=== PATIENT | male | born 1940 | race Caucasian/White ===

== ENCOUNTER 2016-08-16 21:29 | Inpatient (IN) | payer MEDICARE, OTHER ==
[~2016-08-16] VITALS: Ht 162.6 cm; Wt 77.2 kg
[~2016-08-16 21:29] MED LIST: AMLO5TAB4 PO; ASPI-664 PO; BUS5 PO; CHOL100062 PO; CIPR500T4 PO; CLOP75TA27 PO; CRES10 PO; ESOM40CA PO; FENO134C PO; FINA5TAB4 PO; FLUT16SP17 NASAL; IPRA4AER IH; LACT10SO5 PO; MECL12.5 PO; MELO-109 PO; METF500T4 PO; METO50TA16 PO; METR500T PO; NIAC500T92 PO; NIT4 SL; PARO-37 PO; RANO500T2 PO; TAMS0.4C2 PO
[2016-08-16] MEDS ORDERED: SOD CHLORIDE 0.9% 1,000 ML IV STA (22:38)
[2016-08-16] MEDS ORDERED: FAMOTIDINE 20 MG INJ IV STA (22:38)
[2016-08-16] MEDS ORDERED: HYDROmorphONE 1 MG/ML SYG IV STA (22:38)
[2016-08-16] MEDS ORDERED: ONDANSETRON 4 MG INJ IV STA (22:38)
[2016-08-16 23:07] LABS: BASOPHILS % 0.2 % (0.0-2.0); EOSINOPHILS # 0.1 10^3/ul (0.0-0.5); EOSINOPHILS % 0.9 % (0.0-7.0); HEMOGLOBIN 16.4 g/dl (14.0-18.0); LYMPHOCYTES # 1.6 10^3/ul (0.8-2.9); LYMPHOCYTES % 20.6 % (15.0-51.0); MEAN CORPUSCULAR HEMOGLOBIN 31.9 pg (29.0-33.0); MEAN CORPUSCULAR VOLUME 91.2 fl (82.0-101.0); MEAN PLATELET VOLUME 8.1 fl (7.4-10.4); MONOCYTE # 0.5 10^3/ul (0.3-0.9); NEUTROPHIL # 5.6 10^3/ul (1.6-7.5); NEUTROPHILS % 72.3 % (39.0-77.0); PLATELET COUNT 237 10^3/UL (140-440); RED BLOOD COUNT 5.15 10^6/ul (4.70-6.10); RED CELL DISTRIBUTION WIDTH 13.6 % (11.5-14.5); UNCORRECTED WBC 7.7 10^3/ul (4.8-10.8); WHITE BLOOD COUNT 7.7 10^3/ul (4.8-10.8)
[2016-08-16 23:08] LABS: CONDITION 1
[2016-08-16 23:35] LABS: ALBUMIN 4.4 g/dl (3.3-4.9); POTASSIUM 4.3 mmol/L (3.5-5.1)
[2016-08-16 23:37] LABS: CREATININE 0.99 mg/dl (0.61-1.24)
[2016-08-16 23:38] LABS: ALBUMIN/GLOBULIN RATIO 1.33; BILIRUBIN,INDIRECT 0.6 mg/dl (0-1.1); BILIRUBIN,TOTAL 0.6 mg/dl (0.2-1.3); CALCIUM 9.6 mg/dl (8.4-10.2); TOTAL PROTEIN 7.7 g/dl (6.1-8.1)
--- NOTE | 2016-08-17 00:22 | RADRPT ---
PROCEDURE: XR Acute Abdomen. CLINICAL INDICATION: Abdominal pain. TECHNIQUE: Upright and supine views of the abdomen were obtained. COMPARISON: There are no similar studies submitted for comparison. FINDINGS: The visualized lung bases and cardiac silhouette are unremarkable. Some moderately dilated loops of small bowel are noted throughout the abdomen. There are no definit e densities overlying the kidneys and ureters. There is no evidence of intra-abdominal free air. IMPRESSION: Dilated loops of bowel throughout the abdomen compatible with obstruction or ileus. RPTAT: HIKT .Yaw Alonzo MD, MD Date Time Electronically viewed and signed by .Yaw Alonzo MD, MD on 08/17/2016 00:22 .T/
[2016-08-17] MEDS ORDERED: BARIUM SULF 2% 450 ML BTL (BERRY SMOOTHIE) PO STA (01:19)
--- NOTE | 2016-08-17 01:19 | ERA ---
ER Documentation Chief Complaint Date/Time DATE: 08/17/16 TIME: 01:09 Chief Complaint mid epigastric pain with n was seen at [place] earlier today HPI This 76-year-old male who did progressively develop worsening abdominal pain yesterday and threw last night. The patient is complaining of nausea but no vomiting no fever. He is unable to have a bowel movement is not passing gas. The patient was seen at [facility] today where he underwent an ultrasound that demonstrated some gallstones he was followed up by having an MRCP which showed no choledocholithiasis but possible bowel obstruction. He then subsequently underwent a CT scan abdomen and pelvis demonstrating a possible early small bowel obstruction versus ileus. Nonetheless, he was discharged home because he said he felt better after pain meds and fluids. However, once he got home his pain returned he is here now. The pain is located in the upper half of his abdomen described as constant and dull. No radiation of pain. ROS All systems reviewed and are negative except as per history of present illness. Medications Home Meds Active Scripts Metronidazole* (Flagyl*) 500 Mg Tablet, 500 MG PO Q8 for 14 Days, TAB Prov:[employer] 04/11/15 Ciprofloxacin Hcl* (Ciprofloxacin Hcl*) 500 Mg Tablet, 500 MG PO BID for 14 Days , TAB Prov:[employer] 04/11/15 Reported Medications Cholecalciferol* (Vitamin D3*) 1,000 Unit Tablet, 1000 UNIT PO DAILY, TAB 04/09/15 Rosuvastatin Calcium* (Crestor*) 10 Mg Tablet, 10 MG PO HS, TAB 04/09/15 Fenofibrate, Micronized (Fenofibrate) 134 Mg Capsule, 134 MG PO DAILY, CAP 04/09/15 Ranolazine* (Ranexa*) 500 Mg Tab.sr.12h, 500 MG PO Q12, TAB 04/09/15 Albuterol/Ipratropium* (Combivent Respimat*) 20-100 Mcg/Inh - 4 Gm Aer.w.adap, 1 PUFF IH QID, INH 04/09/15 Esomeprazole Mag Trihydrate (Nexium) 40 Mg Capsule.dr, 40 MG PO DAILY, CAP 04/09/15 Aspirin* (Aspirin* EC) 81 Mg Tablet.dr, 81 MG PO DAILY, TAB 04/09/15 Fluticasone Propionate* (Fluticasone Propionate* Nasal) 50 Mcg/[place] - 16 Gm [place].susp, 2 SPRAYS NASAL DAILY, EA TO EACH NOSTRIL 04/09/15 Buspirone Hcl* (Buspar*) 5 Mg Tab, 5 MG PO QHS, TAB 04/09/15 Niacin (Niacin* ER) 500 Mg Tab.er.24h, 500 MG PO QHS, TAB.SA 04/09/15 Clopidogrel Bisulfate (Clopidogrel) 75 Mg Tablet, 75 MG PO DAILY, TAB 04/09/15 Meloxicam* (Meloxicam*) 7.5 Mg Tablet, 7.5 MG PO DAILY, TAB 04/09/15 Lactulose* (Lactulose*) 10 Gm/15 Ml Solution, 20 GM PO QHS, ML 04/09/15 Tamsulosin Hcl* (Tamsulosin Hcl*) 0.4 Mg Cap.er.24h, 0.4 MG PO HS, CAP 04/09/15 Metformin* (Glucophage*) 500 Mg Tab, 500 MG PO DAILY, TAB 04/09/15 Meclizine Hcl* (Meclizine Hcl*) 12.5 Mg Tablet, 12.5 MG PO TID Y for PAIN, TAB 04/09/15 Metoprolol Succinate* (Toprol XL*) 50 Mg Tab.er.24h, 50 MG PO DAILY, TAB 04/09/15 Finasteride* (Finasteride*) 5 Mg Tablet, 5 MG PO DAILY, TAB 04/09/15 Nitroglycerin* (Nitrostat*) 0.4 Mg Tab.subl, 0.4 MG SL Q5MIN Y for CHEST PAIN, BOTTLE 04/09/15 Paroxetine Hcl* (Paroxetine*) 20 Mg Tablet, 20 MG PO DAILY, TAB 04/09/15 Amlodipine Besylate* (Norvasc*) 5 Mg Tablet, 5 MG PO DAILY, TAB 04/09/15 Allergies Allergies: Coded Allergies: No Known Allergy (Verified Allergy, Mild, 06/04/07) PMhx/Soc History of Surgery: Yes ("heart stents") Anesthesia Reaction: No Hx Neurological Disorder: No Hx Respiratory Disorders: No Hx Cardiac Disorders: Yes (CAD, stenting, HTN) Hx Psychiatric Problems: No Hx Miscellaneous Medical Probl: No Hx Alcohol Use: Yes (occassional) Hx Substance Use: No Hx Tobacco Use: No Smoking Status: Unknown if ever smoked FmHx Family History: No coronary disease Physical Exam Vitals Vital Signs Date Time Temp Pulse Resp B/P Pulse Ox O2 Delivery O2 Flow Rate FiO2 08/17/16 00:30 69 16 128/78 99 Room Air 08/16/16 21:33 97.8 81 18 139/83 100 Physical Exam Const: Well-developed, well-nourished Head: Atraumatic, normocephalic Eyes: Normal Conjunctiva, PERRLA, EOMI, normal sclera, no nystagmus ENT: Normal External Ears, Nose and Mouth, moist mucus membranes. Neck: Full range of motion. No meningismus, no lymphadenopathy. Resp: Clear to auscultation bilaterally, no wheezing, rhonchi, rales Cardio: Regular rate and rhythm, no murmurs, S1 S2 present Abd: Soft, mild to moderate tenderness in the upper half of the abdomen , non distended. Decreased bowel sounds, no guarding or rebound, no pulsitile abdominal masses or bruits Skin: No petechiae or rashes, no ecchymosis , no maculopapular rash Back: No midline or flank tenderness Ext: No cyanosis, or edema, FROM x 4, normal inspection, neurovascularly intact x 4 Neur: Awake and alert, STR 5/5 x 4, sensation intact x 4, no focal findings, cerebellum intact Psych: Normal Mood and Affect Result Diagram: 08/16/16222408/16/162224 Results 24 hrs Laboratory Tests Test 08/16/16 22:25 Alanine Aminotransferase (ALT/SGPT) 35IU/L Albumin 4.4g/dl Albumin/Globulin Ratio 1.33 Alkaline Phosphatase 52IU/L Anion Gap 22 Aspartate Amino Transf (AST/SGOT) 67IU/L Basophils # 0.010^3/ul Basophils % 0.2% Blood Urea Nitrogen 12mg/dl Calcium Level 9.6mg/dl Carbon Dioxide Level 25mmol/L Chloride Level 102mmol/L Creatinine 0.99mg/dl Direct Bilirubin 0.00mg/dl Eosinophils # 0.110^3/ul Eosinophils % 0.9% Globulin 3.30g/dl Glucose Level 121mg/dl Hematocrit 47.0% Hemoglobin 16.4g/dl Indirect Bilirubin 0.6mg/dl Lipase 60U/L Lymphocytes # 1.610^3/ul Lymphocytes % 20.6% Mean Corpuscular Hemoglobin 31.9pg Mean Corpuscular Hemoglobin Concent 35.0g/dl Mean Corpuscular Volume 91.2fl Mean Platelet Volume 8.1fl Monocytes # 0.510^3/ul Monocytes % 6.0% Neutrophils # 5.610^3/ul Neutrophils % 72.3% Nucleated Red Blood Cells # 0.010^3/ul Nucleated Red Blood Cells % 0.0/100WBC Platelet Count 60467^3/UL Potassium Level 4.3mmol/L Red Blood Count 5.1510^6/ul Red Cell Distribution Width 13.6% Sodium Level 145mmol/L Total Bilirubin 0.6mg/dl Total Protein 7.7g/dl White Blood Count 7.710^3/ul Current Medications Medications (Trade) Dose Ordered Sig/Bonnie Route PRN Reason Start Time Stop Time Status Last Admin Dose Admin Sodium Chloride (NS) 1,000 ml @ 1,000 mls/hr Q1H STAT IV 08/16/16 22:38 08/16/16 23:37 DC 08/16/16 22:46 Hydromorphone HCl (Dilaudid) 1 mg ONCE STAT IV 08/16/16 22:38 08/16/16 22:42 DC 08/16/16 22:46 Ondansetron HCl (Zofran Inj) 4 mg ONCE STAT IV 08/16/16 22:38 08/16/16 22:42 DC 08/16/16 22:46 Famotidine (Pepcid Iv) 20 mg ONCE STAT IV 08/16/16 22:38 08/16/16 22:42 DC 08/16/16 22:46 Procedures/MDM Spoke on the phone with the patient's son who is a fish net stringer. We do not feel is necessary to re-CAT scan him again exposing him to more radiation as he had a CAT scan this morning. Family has the results of the dictation with them. These results demonstrate dictation of a partial small bowel obstruction versus ileus. And therefore obtained 3 view abdomen x-rays: PROCEDURE: XR Acute Abdomen. CLINICAL INDICATION: Abdominal pain. TECHNIQUE: Upright and supine views of the abdomen were obtained. COMPARISON: There are no similar studies submitted for comparison. FINDINGS: The visualized lung bases and cardiac silhouette are unremarkable. Some moderately dilated loops of small bowel are noted throughout the abdomen. There are no definite densities overlying the kidneys and ureters. There is no evidence of intra-abdominal free air. IMPRESSION: Dilated loops of bowel throughout the abdomen compatible with obstruction or ileus. RPTAT: HIKT .Yaw Alonzo MD, MD Date Time Electronically viewed and signed by .Yaw Alonzo MD, MD on 08/17/2016 00:22 .T/ CC: RANJAN DAVIS DO Patient has a small bowel obstruction versus ileus. I will not put an NG tube in him because he is not vomiting and has not had a vomiting history. Will treat with bowel rest and IV fluids We will consult general surgery and admit to the panel His pain is completely resolved at this point in his stay. After speaking with Dr. Mayorga he wants me to put an NG tube in the patient and give contrast then he will get a abdominal series in the morning Departure Diagnosis: Primary Impression: Small bowel obstruction Condition: Stable RANJAN DAVIS DO Aug 17, 2016 01:19
[2016-08-17] MEDS ORDERED: SOD CHLORIDE 0.9% 1,000 ML IV SCH ×2 (02:11→02:48)
[2016-08-17] MEDS ORDERED: ONDANSETRON 4 MG INJ IV PRN ×2 (02:30→03:00)
[2016-08-17] MEDS ORDERED: ACETAMINOPHEN 325 MG TAB PO PRN (02:30)
[2016-08-17] MEDS ORDERED: ONDANSETRON 4 MG INJ IV STA (02:42)
[2016-08-17] MEDS ORDERED: HYDROmorphONE 1 MG/ML SYG IV STA (02:42)
--- NOTE | 2016-08-17 02:48 | HP ---
Date/Time of Note Date/Time of Note DATE: 08/17/16 TIME: 02:39 Assessment/Plan VTE Prophylaxis VTE Prophylaxis Intervention: SCD's Assessment/Plan Assessment/Plan 76 yo male with past medical history of essential hypertension, type II DM, BPH , GERD, hyperlipidemia, depression, diverticulitis previously, who presents with abdominal pain of 2 days duration. 1. Abdominal pain 2/2 to SBO vs ileus - will admit the patient to med/surg, consult surgery (Dr. Mayorga) was notified, NPO, IVF, NGT to intermittent suction , bowel rest, pain medications, repeat abd series in am 2. Essential hypertension - hold medications, hydralazine prn for SBP > 160 3. Type II DM - check hga1c, ISS 4. BPH - hold home medications 5. Dyslipidemia - check lipid panel, hold statin 6. Depression - hold SSRI 7. GERD - protonix IV 8. GI ppx - protonix 9. DVT ppx - scds answered all of his questions. as per clinical course. this history and physical took greater then 45 minutes to complete HPI/ROS Admit Date/Time Admit Date/Time 08/17/2016, 2:39 am Hx of Present Illness 76 yo male with past medical history of essential hypertension, type II DM, BPH , GERD, hyperlipidemia, depression, diverticulitis previously, who presents with abdominal pain of 2 days duration. The pain is diffuse, 10/10, pressure/ stabbing in nature, associated with nausea, chills, headache, and dizziness. His last bowel movement was 4 am Wednesday08/16/2016. He initially went to [facility] and told he had a partial obstruction seen on CT abd/pelvis, sent home with after the pain subsided. US and MRCP were negative for cholecystitis and choledocholithiasis. He came here to [facility], because the pain returned. He denies any chest pain, shortness of breath, urinary symptoms, fevers, diarrhea, abdominal surgeries in past, or other constitutional symptoms. ED course: IV pain medications, NGT to intermittent suction, zofran ROS 14 point review of systems completed, please refer to HPI for any positive findings PMH/Family/Social Past Medical History BPH, Diverticulitis Medical History: coronary artery disease, diabetes, GERD, high cholesterol, hypertension Past Surgical History angiogram with angioplasty Family History Significant Family History: hypertension Social History Alcohol Use: none Smoking Status: Former smoker (quit 25 years ago) Drug Use: none Exam/Review of Systems Vital Signs Vitals Vital Signs Date Time Temp Pulse Resp B/P Pulse Ox O2 Delivery O2 Flow Rate FiO2 08/17/16 00:30 69 16 128/78 99 Room Air 08/16/16 21:33 97.8 Exam Exam Gen Dalton: moderate distress 2/2 to abdominal pain, AAOx4 HEENT: NC/AT, PERRLA, EOMI, no pharyngeal erythema, no tonsillar exudates, no lymphadenopathy, no JVD, no carotid bruits NECK: supple, no thyromegaly THORAX: symmetrical, no obvious deformities CV: S1S2, RRR, no M/G/R Lungs: CTAB no W/C/R/R Abd: soft, tenderness diffusely to deep palpation, non-distended, hypoactive bowel sounds all 4 quadrants, no HSM EXT: no edema, no ecchymosis, no clubbing, FROM Neuro: CN II-XII grossly intact, no focal deficits Psych: anxious Skin: C/D/I Labs Result Diagram: 08/16/16222408/16/162224 Medications Medications Current Medications Sodium Chloride (NS) 1,000 ml @ 80 mls/hr [id number] IV ; Start 08/17/16 at 02:11 ; Stop 08/17/16 at 14:40 Procedures Procedures abd xray IMPRESSION: Dilated loops of bowel throughout the abdomen compatible with obstruction or ileus. QUINN SANDOVAL MD Aug 17, 2016 02:48
[2016-08-17] MEDS ORDERED: hydrALAzine 20 MG INJ IV PRN (03:00)
[2016-08-17] MEDS ORDERED: ACETAMINOPHEN 650 MG SUPP PR PRN (03:00)
[2016-08-17] MEDS ORDERED: NACL 0.9% 3 ML SYG IV SCH (03:00)
[2016-08-17] MEDS ORDERED: METOCLOPRAMIDE 10 MG INJ IV PRN (03:00)
--- NOTE | 2016-08-17 03:01 | RADRPT ---
PROCEDURE: XR Chest. CLINICAL INDICATION: Shortness of breath. TECHNIQUE: AP Portable chest. COMPARISON: 06/04/2007 FINDINGS: There is mild to moderate cardiomegaly. The lungs are clear. The osseous structures are unremarkab le. A nasogastric tube tip is in the stomach. IMPRESSION: No acute findings. RPTAT: HIKT .Yaw Alonzo MD, MD Date Time Electronically viewed and signed by .Yaw Alonzo MD, on 08/17/2016 03:01 .T/
[2016-08-17 04:30] VITALS: Ht 162.6 cm; Wt 77.2 kg
[2016-08-17 04:38] VITALS: BP 141/81; RESP 20
[2016-08-17] MEDS: INSULIN ASPART [NOVOLOG] 3 ML PEN SC SCH ×3 (04:48→13:00)
[2016-08-17] MEDS: PANTOPRAZOLE 40 MG INJ IV SCH (05:32)
[2016-08-17 07:30] LABS: CHOL/HDL RATIO 2.5 RATIO; MAGNESIUM 1.7 mg/dl (1.7-2.5)
[2016-08-17 08:01] LABS: THYROID STIMULATING HORMONE 1.89 MIU/L (0.465-4.680)
[2016-08-17 08:23] VITALS: BP 128/74; RESP 16
[2016-08-17] MEDS ORDERED: DEXTROSE 50% 50 ML SYRINGE IV PRN ×2 (09:00)
[2016-08-17] MEDS ORDERED: GLUCOSE GEL 15 GRAM TUBE PO PRN ×2 (09:00)
[2016-08-17] MEDS ORDERED: GLUCAGON 1 MG INJ IM PRN (09:00)
[2016-08-17] MEDS ORDERED: GLUCOSE GEL 15 GRAM TUBE BUCCAL PRN (09:00)
[2016-08-17] MEDS ORDERED: NON-FORMULARY/PATIENT OWN MED (Albuterol/Ipratropium* (Combivent Respimat*) 1 PUFF) IH SCH (09:00)
[2016-08-17] MEDS ORDERED: LACTATED RINGER'S 1,000 ML IV SCH (14:00)
[2016-08-17] MEDS: D5W-0.45 NACL + KCL 10 MEQ 1,000 ML IV SCH (15:45)
[2016-08-17] MEDS ORDERED: PHENOL 1.4% SOLN 180 ML BTL MT PRN ×2 (16:30→20:30)
--- NOTE | 2016-08-17 16:54 | RADRPT ---
PROCEDURE: XR Abdomen. CLINICAL INDICATION: Abdomen pain. TECHNIQUE: Two views. AP supine and AP erect. COMPARISON: 08/16/2016. FINDINGS: There is a nasogastric tube with the tip in the upper stomach. This should be advanced approximatel y 7 cm. There is gas throughout mildly dilated small bowel. Minimal gas is present in the colon. There are no abnormal calcifications overlying the urinary tracts. The osseus structures are unremarkable. IMPRESSION: 1. The nasogastric tube should be advanced approximately 7 cm. 2. Ileus or obstruction, similar to the prior study. RPTAT: QQ .Hema Maddox MD, MD Date Time Electronically viewed and signed by .Hema Maddox MD, on 08/17/2016 16:53 .R/
[2016-08-17] MEDS: morphine 2 MG INJ IV PRN (18:35)
[2016-08-17 18:36] VITALS: BP 147/82; RESP 18
[2016-08-17 18:55] VITALS: PULSE 78
[2016-08-17 20:48] VITALS: PULSE 79
[2016-08-17 20:50] VITALS: BP 130/83; PULSE 78; RESP 20
[2016-08-17] MEDS: ALBUTEROL HFA 8 GM INHALER INH SCH (22:32)
[2016-08-17] MEDS: IPRATROPIUM (HFA) 12.9 GM INHALER INH SCH (22:32)
--- NOTE | 2016-08-17 23:12 | RADRPT ---
PROCEDURE: XR Chest. CLINICAL INDICATION: Shortness of breath. TECHNIQUE: Single frontal view. COMPARISON: 08/17/2016. FINDINGS: The nasogastric tube remains in satisfactory position. The lungs are clear. The heart is enlarged. There is no pleural effusion. There is no pneumothorax. IMPRESSION: 1. Nasogastric tube tip in the stomach. 2. Cardiomegaly. 3. Clear lungs. RPTAT: QQ .Hema Maddox MD, MD Date Time Electronically viewed and signed by .Hema Maddox MD, on 08/17/2016 23:12 .R/
--- NOTE | 2016-08-17 23:27 | RADRPT ---
PROCEDURE: CT Abdomen and Pelvis without contrast. CLINICAL INDICATION: Abdominal and pelvic pain. TECHNIQUE: CT scan of the abdomen and pelvis without contrast was performed. Coronal and sagittal reformatted images were obtained from the axial source images. Images were reviewed on a [employer]on PACS workstation. Total exam DLP is 795.90 mGy-cm. CTDIvol is 13.41 mGy. One or more of the f ollowing dose reduction techniques were used: Automated exposure control, adjustment of the mA and/o r kV according to patient size, use of iterative reconstruction technique. COMPARISON: CT scan of the abdomen and pelvis dated 04/09/2015 which demonstrated probable sigmoid diverticulitis. FINDINGS: There is mild atelectasis at both lung bases. The lung bases are otherwise normal. There is no ple ural effusion or pericardial effusion. The heart size is normal. There is coronary artery calcific ation. A nasogastric tube is present with the tip in the stomach. The liver is normal in size and attenuation. There is no focal hepatic lesion. The gallbladder and bile ducts are normal. The spleen is normal in size. There is no focal splenic lesion. Both adrenals are normal with no enlargement or mass. The pancreas is unremarkable with no mass or evidence of pancreatitis. There is a benign cyst in the mid left kidney medially. There is no solid renal mass or hydronephro sis. There is no renal calculus or ureteral calculus. The abdominal aorta is not dilated. There is calcification in the aorta consistent with atheroscler osis. There is no retroperitoneal lymphadenopathy or mass. There is no pelvic lymphadenopathy or mass. The bladder and distal ureters are normal. The appendix is well seen and appears normal. There is diverticulosis of the colon without evidence of diverticulitis. There are multiple dilated loops of small bowel in the upper abdomen and midabdomen. Air fluid levels are present. Contrast is present in the small bowel from prior injection of contrast into the nasogastric tube. No defini te transition point is visualized. The distal small bowel is also mildly dilated. There is no free air. There is a small amount of free fluid in the abdomen and pelvis. There are degenerative changes of the spine. There is no fracture or lytic lesion. IMPRESSION: 1. Mild atelectasis at the lung bases posteriorly. 2. Coronary artery calcification. 3. Nasogastric tube tip in the stomach. 4. Benign left renal cyst. 5. Atherosclerosis. 6. Small bowel obstruction or ileus with no definite transition point visualized. 7. Small amount of free fluid in the abdomen and pelvis. 8. Degenerative changes of the spine. RPTAT: QQ .Hema Maddox MD, Date Time Electronically viewed and signed by .Hema Maddox MD, MD on 08/17/2016 23:26 .R/
[2016-08-18] VITALS (29 sets, daily range): BP systolic 112–166; BP diastolic 75–92; PULSE 68–88; RESP 16–20
[2016-08-18] MEDS: D5W-0.45 NACL + KCL 10 MEQ 1,000 ML IV SCH ×2 (03:46→15:55)
--- NOTE | 2016-08-18 04:44 | CONS ---
DATE OF ADMISSION: 08/17/2016 DATE OF CONSULTATION: 08/17/2016 HISTORY OF PRESENT ILLNESS: Mr. Olivia is a 76-year-old male who had some acute onset of crampy ab dominal pain beginning Wednesday, presented to [facility] which workup was concerning for possible commo n bile duct stones. This was ruled out by MRCP, but he did have a CT and MR showing a mild ileus. His symptoms improved, and he was discharged home later to come back to [facility] last [facility] with a similar crampy abdominal pain and an abdominal series consistent with ileus, and I was anthony led for consultation. PAST MEDICAL HISTORY: Significant for coronary artery disease. He is status post an angiogram with angioplasty, BPH, diverticulitis, GERD, high cholesterol, hypertension. SOCIAL HISTORY: He drinks occasionally. He quit smoking 25 years ago. MEDICATIONS: He is on 1. Vitamin D3. 2. Crestor. 3. Ranexa. 4. Nexium. 5. Fluticasone. 6. BuSpar. 7. Niacin. 8. Clopidogrel. 9. Meloxicam. 10. Lactulose. 11. . 12. Glucophage. 13. Meclizine. 14. Toprol. 15. Finasteride. 16. Nitrostat. 17. Paroxetine. 18. Norvasc. ALLERGIES: NO KNOWN DRUG ALLERGIES. PHYSICAL EXAMINATION: GENERAL: He is a well-developed, well-nourished male in no apparent distress. VITAL SIGNS: He is afebrile. Vital signs stable. CHEST: Clear to auscultation bilaterally. HEART: Regular rhythm. ABDOMEN: Soft, nondistended with some mild epigastric tenderness. LABORATORY DATA: Yesterday reveal white count of 8, hematocrit of 47, platelets 237. An abdominal x-ray this morning reveals ileus or obstruction with small amount of gas present in the colon. ASSESSMENT AND PLAN: Mr. Olivia is a 77-year-old male with possible ileus versus small bowel obstr uction. 1. I had a long discussion with the patient and the son about the possible etiology of these sympto ms. The patient never had prior episodes, and this all started a week ago after some dental procedu res. The patient denies abdominal surgery. 2. I did give the patient oral contrast last night in an attempt that the contrast would made it to the colon; however, on the abdominal series today, there was really no contrast to be seen. Theref ore, the radiologist recommended a CT of the abdomen and pelvis which will be performed stat tonight . 3. Revaluate tomorrow. Dictated By: MARKY GONZALEZ/ABRIL Conf#: [id number] DID#: [id number]
[2016-08-18] MEDS: PANTOPRAZOLE 40 MG INJ IV SCH (05:12)
[2016-08-18 06:55] LABS: BASOPHILS % 0.4 % (0.0-2.0); EOSINOPHILS # 0.1 10^3/ul (0.0-0.5); EOSINOPHILS % 2.4 % (0.0-7.0); HEMATOCRIT 42.1 % (42.0-52.0); HEMOGLOBIN 14.4 g/dl (14.0-18.0); LYMPHOCYTES # 1.5 10^3/ul (0.8-2.9); LYMPHOCYTES % 29.8 % (15.0-51.0); MEAN CORPUSCULAR HEMOGLOBIN 31.9 pg (29.0-33.0); MEAN CORPUSCULAR HGB CONC 34.3 g/dl (32.0-37.0); MEAN CORPUSCULAR VOLUME 92.9 fl (82.0-101.0); MEAN PLATELET VOLUME 8.1 fl (7.4-10.4); MONOCYTE # 0.7 10^3/ul (0.3-0.9); MONOCYTES % 13.9 % (0.0-11.0); NEUTROPHIL # 2.6 10^3/ul (1.6-7.5); NEUTROPHILS % 53.5 % (39.0-77.0); PLATELET COUNT 207 10^3/UL (140-440); RED BLOOD COUNT 4.53 10^6/ul (4.70-6.10); RED CELL DISTRIBUTION WIDTH 13.4 % (11.5-14.5); UNCORRECTED WBC 4.9 10^3/ul (4.8-10.8); WHITE BLOOD COUNT 4.9 10^3/ul (4.8-10.8)
[2016-08-18 06:58] LABS: PHOSPHORUS 2.6 mg/dl (2.5-4.9); POTASSIUM 3.8 mmol/L (3.5-5.1)
[2016-08-18 06:59] LABS: MAGNESIUM 1.8 mg/dl (1.7-2.5)
[2016-08-18] MEDS ORDERED: CEFAZOLIN 1 GM INJ ONE (07:00)
[2016-08-18 07:01] LABS: CREATININE 1.01 mg/dl (0.61-1.24)
[2016-08-18 07:02] LABS: CALCIUM 8.5 mg/dl (8.4-10.2)
[2016-08-18 07:09] LABS: CONDITION 1
[2016-08-18] MEDS: ALBUTEROL HFA 8 GM INHALER INH SCH ×4 (09:53→20:17)
[2016-08-18] MEDS: IPRATROPIUM (HFA) 12.9 GM INHALER INH SCH ×4 (09:53→20:17)
--- NOTE | 2016-08-18 11:30 | PN ---
Date/Time of Note Date/Time of Note DATE: 08/18/16 TIME: 11:26 Assessment/Plan VTE Prophylaxis VTE Prophylaxis Intervention: SCD's Lines/Catheters IV Catheter Type (from Nrsg): Peripheral IV Assessment/Plan Chief Complaint/Hosp Course Assessment/Plan: 76 yo male with past medical history of essential hypertension , type II DM, BPH, GERD, hyperlipidemia, depression, diverticulitis previously, who presents with abdominal pain with + SBO. 1. Abdominal pain - 2/2 to SBO vs ileus - NG tube in place, seen by surgery team - per consult surgery (Dr. Mayorga), continue NPO, IVF, NGT to intermittent suction - plan for surgery later today, continue pain medications 2. Essential hypertension - stable - continue hydralazine prn for SBP > 160 3. Type II DM? hga1c = 5.4 - monitor for now 4. BPH - holding home medications 5. Dyslipidemia - f/u lipid panel, hold statin 6. Depression - holding SSRI 7. GERD - protonix IV 8. GI ppx - protonix 9. DVT ppx - scds Problems: Subjective 24 Hr Interval Summary Free Text/Dictation Less abd pain, but still present. Awaiting surgery for later today. Exam/Review of Systems Vital Signs Vitals Vital Signs Date Time Temp Pulse Resp B/P Pulse Ox O2 Delivery O2 Flow Rate FiO2 08/18/16 08:35 77 08/18/16 07:49 98.5 20 143/84 98 08/17/16 20:50 Room Air Intake and Output 08/17/16 08/17/16 08/18/16 15:00 23:00 07:00 Intake Total 640 ml Output Total 350 ml 400 ml Balance -350 ml 240 ml Exam Gen Dalton: AAOx4, NAD presently HEENT: NC/AT, PERRLA, EOMI NECK: supple, no thyromegaly THORAX: symmetrical, no obvious deformities CV: S1S2, RRR, no M/G/R Lungs: CTAB no W/C/R/R Abd: soft, less tenderness to deep palpation now, non-distended EXT: no edema, no ecchymosis, no clubbing, FROM Neuro: CN II-XII grossly intact, no focal deficits Psych: less anxious Skin: C/D/I Results Result Diagram: 08/18/16 0600 08/18/16 0600 Results 24 hrs Laboratory Tests Test 08/17/16 11:56 08/18/16 06:00 Bedside Glucose 94 Anion Gap 14 # Basophils # 0.0 Basophils % 0.4 Blood Urea Nitrogen 12 Calcium Level 8.5 Carbon Dioxide Level 26 Chloride Level 106 Creatinine 1.01 Eosinophils # 0.1 Eosinophils % 2.4 Glucose Level 115 Hematocrit 42.1 Hemoglobin 14.4 Lymphocytes # 1.5 Lymphocytes % 29.8 Magnesium Level 1.8 Mean Corpuscular Hemoglobin 31.9 Mean Corpuscular Hemoglobin Concent 34.3 Mean Corpuscular Volume 92.9 Mean Platelet Volume 8.1 Monocytes # 0.7 Monocytes % 13.9 H Neutrophils # 2.6 Neutrophils % 53.5 Nucleated Red Blood Cells # 0.0 Nucleated Red Blood Cells % 0.0 Phosphorus Level 2.6 Platelet Count 207 Potassium Level 3.8 Red Blood Count 4.53 L Red Cell Distribution Width 13.4 Sodium Level 142 White Blood Count 4.9 # Medications Medications Current Medications Ondansetron HCl (Zofran Inj) 4 mg Q6H PRN IV NAUSEA AND/OR VOMITING; Start at 03:00 Metoclopramide HCl (Reglan) 10 mg Q6H PRN IV NAUSEA AND/OR VOMITING; Start at 03:00 Acetaminophen (Tylenol Supp) 650 mg Q6H PRN MD PAIN LEVEL 1-3 OR FEVER; Start 08/17/16 at 03:00 Morphine Sulfate (morphine) 2 mg Q4H PRN IV SEVERE PAIN LEVEL 7-10 Last administered on 08/17/16 18:35; Admin Dose 1 MG; Start 08/17/16 at 03:00 Pantoprazole (Protonix Iv) 40 mg DAILY@06 IV Last administered on 08/18/16 05: 12; Admin Dose 40 MG; Start 08/17/16 at 06:00 Hydralazine HCl (Apresoline) 10 mg Q6H PRN IV sbp > 160; Start 08/17/16 at 03: 00 Albuterol (Ventolin Hfa) 1 puff QID INH Last administered on 08/18/16 09:53; Admin Dose 1 PUFF; Start 08/17/16 at 09:00 Ipratropium [place] 1 puff 1 puff QID INH Last administered on 08/18/16 09:53 ; Admin Dose 1 PUFF; Start 08/17/16 at 09:00 Potassium Chloride/Dextrose/ Sod Cl (D5-1/2ns + KCl 10 Meq) 1,000 ml @ 80 mls/ hr [id number] IV Last administered on 08/18/16 03:46; Admin Dose 80 MLS/HR; Start 08/17/16 at 14:30 Phenol (Chloraseptic Throat [place]) 2 spray PRN PRN MT THROAT/EAR PAIN FROM NGT ; Start 08/17/16 at 16:30 Phenol (Chloraseptic Throat [place]) 2 spray Q2H PRN MT SORE THROAT; Start at 20:30 MARITA LOPEZ Aug 18, 2016 11:30
--- NOTE | 2016-08-18 12:02 | PN ---
DATE: 08/18/[address] scan was repeated on Mr. Olivia last night and he still seems obstructed. I had a long disc ussion with the family as well as his son last night and today. The patient has now been going on 4 days with a partial small-bowel obstruction of unknown etiology. He is a primary small-bowel obstr uction, has never had surgery before. I discussed the need for exploration as he has not resolved. Son was in agreement. I discussed laparoscopic possible open, lysis of adhesions, possible bowel r esection. All benefits, risks, alternatives were discussed in detail. All questions were answered. The patient elects to proceed. Dictated By: MARKY GONZALEZ/ABRIL Conf#: [id number] DID#: [id number]
[2016-08-18] MEDS: morphine 2 MG INJ IV PRN (12:17)
[2016-08-18] MEDS ORDERED: GLYCOPYRROLATE 0.4 MG INJ ONE (17:08)
[2016-08-18] MEDS ORDERED: HYDROmorphONE 2 MG/ML SYG ONE (17:08)
[2016-08-18] MEDS ORDERED: PROPOFOL 20 ML ONE (17:08)
[2016-08-18] MEDS ORDERED: MIDAZOLAM 1 MG/ML 2 ML INJ ONE (17:08)
[2016-08-18] MEDS ORDERED: NEOSTIGMINE 3 MG/3 ML SYRINGE ONE (17:08)
[2016-08-18] MEDS ORDERED: ROCURONIUM 50 MG INJ ONE (17:08)
[2016-08-18] MEDS ORDERED: ONDANSETRON 4 MG INJ ONE (17:08)
[2016-08-18] MEDS ORDERED: METOCLOPRAMIDE 10 MG INJ ONE (17:12)
[2016-08-18] MEDS ORDERED: ROPIVACAINE 0.5 % 30 ML VIAL ONE (17:51)
[2016-08-18] MEDS ORDERED: HYDROCODONE/APAP (5/325) TAB PO PRN (18:00)
[2016-08-18] MEDS ORDERED: IBUPROFEN 600 MG TAB PO PRN (18:00)
[2016-08-18] MEDS ORDERED: LABETALOL HCL 20MG INJ IV PRN (18:00)
[2016-08-18] MEDS ORDERED: MEPERIDINE 25 MG INJ IV PRN (18:00)
[2016-08-18] MEDS ORDERED: METOCLOPRAMIDE 10 MG INJ IV PRN (18:00)
[2016-08-18] MEDS ORDERED: hydrALAzine 20 MG INJ IV PRN (18:00)
[2016-08-18] MEDS ORDERED: HYDROmorphONE (0.2 MG/ML) 10ML SYG IV PRN ×3 (18:00)
[2016-08-18] MEDS ORDERED: ONDANSETRON 4 MG INJ IV PRN ×2 (18:00)
[2016-08-18] MEDS ORDERED: ACETAMINOPHEN 325 MG TAB PO PRN (18:00)
[2016-08-18] MEDS ORDERED: DIPHENHYDRAMINE 50 MG INJ IV PRN (18:00)
[2016-08-18] MEDS ORDERED: METOPROLOL 5 MG INJ ONE (18:08)
--- NOTE | 2016-08-18 19:26 | OPR ---
DATE OF OPERATION: 08/18/2016 PREOPERATIVE DIAGNOSIS: Small-bowel obstruction. POSTOPERATIVE DIAGNOSIS: Small-bowel obstruction. PROCEDURE PERFORMED: Laparoscopic lysis of adhesions and reduction of internal hernia. SURGEON: Marky Mayorga MD AEROSPACE ENGINEER OFFICER ARMAMENT: None. ANESTHESIA: General endotracheal. ANESTHESIOLOGIST: Celina Sevilla MD ESTIMATED BLOOD LOSS: Minimal. COMPLICATIONS: None. SPECIMENS: Two adhesions. FINDINGS: Internal hernia x2 from adhesive bands in the right lower quadrant. INDICATIONS: Mr. Olivia is a 76-year-old male who presented 2 days ago to the outside hospital wit h abdominal cramps and inability to have a bowel movement and pass flatus. He was discharged home a nd he came back to the emergency room at [facility]. persistently dilated small bowel . He never had prior surgery and the fact that he did resolve and had persistent symptoms for 4 day s, I felt that he warranted an exploration. I discussed laparoscopic, possible open lysis of adhesi ons, possible bowel resection with the patient, his son and his family. All benefits, risks, altern atives were discussed in detail. All questions answered. The patient elected to proceed. DESCRIPTION OF PROCEDURE: Patient was brought to the operating room and placed supine on the table. After preoperative antibiotics and SCDs were placed, the patient was intubated, a Hobbs catheter w as inserted and the abdomen was cleaned, prepped, draped in sterile fashion. All incisions were inf iltrated with 1% lidocaine with epinephrine, 0.5% Marcaine prior to incision. The incision was made in the left upper quadrant using a 5 mm laparoscope-containing trocar. The abdomen was entered und er direct vision and insufflated to 15 mmHg of CO2. Under direct vision, a left lower quadrant 5 mm and a 5 mm in the anterior axillary line at the level of the umbilicus was placed. There was obvio us dilated and collapsed small bowel. I identified my cecum and then continued to trace it proximal ly. At this point, I noted there was an obvious adhesive band causing an internal hernia. This was lysed sharply. I continued tracing the bowel and there was another adhesive band which was lysed s harply. At this point, I noted that the loop of the small bowel was very adherent to another loop a nd kind of stuck in abnormal position. I incised the peritoneum as well to free up the small bowel. I then identified my cecum again and ran the small bowel from the terminal ileum to the ligament o f Treitz. There were no more adhesive bands. The bowel was freed at all areas. I ran the bowel x2 . At this point, I visualized the abdomen. There was no evidence of bleeding, no evidence of any e nterotomies made. At this point, I desufflated the abdomen and removed all trocars. Skin incisions were closed with 4-0 Monocryl, Mastisol and Steri-Strips. The patient tolerated procedure well, wa s extubated in the OR and transferred to the recovery room in stable condition. Dictated By: MARKY GONZALEZ/ABRIL Conf#: [id number] DID#: [id number]
[2016-08-18] MEDS: D5-NS + KCL 20 MEQ 1,000 ML IV SCH (20:07)
[2016-08-18 21:17] LABS: ADD UMIC YES; URINE BILIRUBIN (Dip) 1+ (NEGATIVE); URINE BLOOD (Dip) NEGATIVE (NEGATIVE); URINE COLOR YELLOW (YELLOW); URINE GLUCOSE (Dip) NEGATIVE (NEGATIVE); URINE KETONES (Dip) TRACE (NEGATIVE); URINE LEUKOCYTE ESTERASE (Dip) NEGATIVE (NEGATIVE); URINE NITRITE (Dip) NEGATIVE (NEGATIVE); URINE TOTAL PROTEIN (Dip) 2+ (NEGATIVE); URINE UROBILINOGEN (Dip) 0.2 E.U./dL (0.1-1.0)
[2016-08-18 21:25] LABS: ICTOTEST NEGATIVE (NEGATIVE); SQUAMOUS EPITHELIAL CELL,UR RARE; URINE RBCS 0-2 /HPF (0)
[2016-08-19] VITALS (13 sets, daily range): BP systolic 112–140; BP diastolic 66–81; PULSE 73–87; RESP 15–20
[2016-08-19] MEDS ORDERED: PANTOPRAZOLE 40 MG INJ IV SCH (06:00)
[2016-08-19] MEDS: D5-NS + KCL 20 MEQ 1,000 ML IV SCH ×2 (06:30→13:56)
[2016-08-19] MEDS: PANTOPRAZOLE 40 MG INJ IV SCH (06:31)
[2016-08-19] MEDS: ENOXAPARIN 40 MG/0.4 ML SYG SC SCH (06:32)
[2016-08-19] MEDS: ALBUTEROL HFA 8 GM INHALER INH SCH ×4 (08:06→20:26)
[2016-08-19] MEDS: IPRATROPIUM (HFA) 12.9 GM INHALER INH SCH ×4 (08:06→20:27)
[2016-08-19] MEDS: morphine 2 MG INJ IV PRN ×3 (08:07→17:25)
--- NOTE | 2016-08-19 12:22 | PN ---
Date/Time of Note Date/Time of Note DATE: 08/19/16 TIME: 12:19 Assessment/Plan VTE Prophylaxis VTE Prophylaxis Intervention: SCD's Lines/Catheters IV Catheter Type (from Nrsg): Peripheral IV Urinary Cath still in place: Yes Reason Cath still needed: urinary retention Assessment/Plan Chief Complaint/Hosp Course Assessment/Plan: 76 yo male with past medical history of essential hypertension , type II DM, BPH, GERD, hyperlipidemia, depression, diverticulitis previously, who presents with abdominal pain with + SBO. 1. Abdominal pain - 2/2 to SBO vs ileus now s/p Laparoscopic lysis of adhesions and reduction of internal hernia POD # 1 - continue IVF, CLD, f/u surgery rec.s - pain medications, PT 2. Essential hypertension - stable - continue hydralazine prn for SBP > 160 3. Type II DM? hga1c = 5.4 - monitor for now 4. BPH - holding home medications 5. Dyslipidemia - f/u lipid panel, hold statin 6. Depression - holding SSRI 7. GERD - protonix IV 8. GI ppx - protonix 9. DVT ppx - scds Problems: Subjective 24 Hr Interval Summary Free Text/Dictation Pt had surgery w/ lysis of adhesions yesterday, has some abd pain now but relieved with pain meds. Tolerating liquid diet. Has had BM x 2. Exam/Review of Systems Vital Signs Vitals Vital Signs Date Time Temp Pulse Resp B/P Pulse Ox O2 Delivery O2 Flow Rate FiO2 08/19/16 11:55 98.3 73 17 135/76 96 08/18/16 20:04 Nasal Cannula Intake and Output 08/18/16 08/18/16 08/19/16 15:00 23:00 07:00 Intake Total 1000 ml 900 ml Output Total 380 ml 410 ml Balance 620 ml 490 ml Exam Gen Dalton: AAOx4, NAD presently HEENT: NC/AT, PERRLA, EOMI NECK: supple, no thyromegaly THORAX: symmetrical, no obvious deformities CV: S1S2, RRR, no M/G/R Lungs: CTAB no W/C/R/R Abd: slight distension, + tenderness to palpation EXT: no edema, no ecchymosis, no clubbing, FROM Neuro: CN II-XII grossly intact, no focal deficits Psych: less anxious Skin: C/D/I Results Result Diagram: 08/18/16 0600 08/18/16 0600 Results 24 hrs Laboratory Tests Test 08/18/16 18:20 Urine Bilirubin 1+ H Urine Clarity CLEAR Urine Color YELLOW Urine Glucose NEGATIVE Urine Hemoglobin NEGATIVE Urine Ictotest NEGATIVE Urine Ketones TRACE Urine Leukocyte Esterase NEGATIVE Urine Microscopic RBC 0-2 Urine Microscopic WBC 0-2 Urine Nitrite NEGATIVE Urine Specific [place] >=1.030 H Urine Squamous Epithelial Cells RARE Urine Total Protein 2+ H Urine Urobilinogen 0.2 E.U./dL Urine pH 5.0 Medications Medications Current Medications Metoclopramide HCl (Reglan) 10 mg Q6H PRN IV NAUSEA AND/OR VOMITING; Start at 03:00 Acetaminophen (Tylenol Supp) 650 mg Q6H PRN [place] PAIN LEVEL 1-3 OR FEVER; Start 08/17/16 at 03:00 Morphine Sulfate (morphine) 2 mg Q4H PRN IV SEVERE PAIN LEVEL 7-10 Last administered on 08/19/16 08:07; Admin Dose 2 MG; Start 08/17/16 at 03:00 Pantoprazole (Protonix Iv) 40 mg DAILY@06 IV Last administered on 08/19/16 06: 31; Admin Dose 40 MG; Start 08/17/16 at 06:00 Hydralazine HCl (Apresoline) 10 mg Q6H PRN IV sbp > 160; Start 08/17/16 at 03: 00 Albuterol (Ventolin Hfa) 1 puff QID INH Last administered on 08/19/16 08:06; Admin Dose 1 PUFF; Start 08/17/16 at 09:00 Ipratropium [place] (Atrovent Hfa) 1 puff QID INH Last administered on 08:06; Admin Dose 1 PUFF; Start 08/17/16 at 09:00 Phenol (Chloraseptic Throat [place]) 2 spray PRN PRN [place] THROAT/EAR PAIN FROM NGT ; Start 08/17/16 at 16:30 Phenol (Chloraseptic Throat [place]) 2 spray Q2H PRN MT SORE THROAT; Start at 20:30 Morphine Sulfate (morphine) 2 mg Q2H PRN IV PAIN LEVEL 6-10 Last administered on 08/19/16 11:05; Admin Dose 2 MG; Start 08/18/16 at 18:00 Acetaminophen/ Hydrocodone Bitart ([place] (5/325)) 1 tab Q6H PRN PO PAIN LEVEL 6 -10; Start 08/18/16 at 18:00 Acetaminophen (Tylenol Tab) 650 mg Q6H PRN PO PAIN AND OR ELEVATED TEMP; Start 08/18/16 at 18:00 Ibuprofen (Motrin) 600 mg Q6H PRN PO PAIN LEVEL 1-5; Start 08/18/16 at 18:00 Ondansetron HCl 4 mg 4 mg Q6H PRN IV NAUSEA AND/OR VOMITING; Start 08/18/16 at 18:00 Potassium Chloride/Dextrose/ Sod Cl (D5-NS + KCl 20 Meq) 1,000 ml @ 100 mls/hr Q10H IV Last administered on 08/19/16 06:30; Admin Dose 100 MLS/HR; Start 08/18 at 17:56 Enoxaparin Sodium (Lovenox) 40 mg DAILY@07 SC Last administered on 08/19/16 06: 32; Admin Dose 40 MG; Start 08/19/16 at 07:00 MARITA LOPEZ Aug 19, 2016 12:22
--- NOTE | 2016-08-19 21:22 | PN ---
DATE: 08/19/2016 SUBJECTIVE: Mr. Olivia is postop day 1 from a laparoscopic lysis of adhesions. The patient states he feels better but still is having intermittent crampy pain. He has passed flatus today. PHYSICAL EXAMINATION: VITAL SIGNS: He is afebrile. Vital signs stable. ABDOMEN: Mildly distended. LABORATORIES: Today reveal a white count of 5, hematocrit of 42 and platelets of 207. Sodium 142. ASSESSMENT AND PLAN: Mr. Olivia is a 76-year-old male status post laparoscopic lysis of adhesions. 1. Mild ileus. Would start ice chips and await bowel function until advancing diet. 2. Continue IV fluids. 3. Slowly improving. Dictated By: MARKY GONZALEZ/NTS Conf#: [id number] DID#: [id number]
[2016-08-20] VITALS (10 sets, daily range): BP systolic 127–134; BP diastolic 76–89; PULSE 61–76; RESP 17–20
[2016-08-20] MEDS: D5-NS + KCL 20 MEQ 1,000 ML IV SCH ×2 (00:07→11:00)
[2016-08-20] MEDS: PANTOPRAZOLE 40 MG INJ IV SCH (06:14)
[2016-08-20] MEDS: ENOXAPARIN 40 MG/0.4 ML SYG SC SCH (06:24)
[2016-08-20 07:35] LABS: BASOPHILS % 0.5 % (0.0-2.0); EOSINOPHILS # 0.2 10^3/ul (0.0-0.5); HEMATOCRIT 36.9 % (42.0-52.0); HEMOGLOBIN 12.9 g/dl (14.0-18.0); LYMPHOCYTES # 1.5 10^3/ul (0.8-2.9); LYMPHOCYTES % 39.3 % (15.0-51.0); MEAN CORPUSCULAR HEMOGLOBIN 32.3 pg (29.0-33.0); MEAN CORPUSCULAR VOLUME 92.5 fl (82.0-101.0); MEAN PLATELET VOLUME 7.3 fl (7.4-10.4); MONOCYTE # 0.5 10^3/ul (0.3-0.9); MONOCYTES % 12.4 % (0.0-11.0); NEUTROPHIL # 1.6 10^3/ul (1.6-7.5); NEUTROPHILS % 41.8 % (39.0-77.0); PLATELET COUNT 185 10^3/UL (140-440); RED BLOOD COUNT 3.99 10^6/ul (4.70-6.10); RED CELL DISTRIBUTION WIDTH 13.1 % (11.5-14.5); UNCORRECTED WBC 3.7 10^3/ul (4.8-10.8); WHITE BLOOD COUNT 3.7 10^3/ul (4.8-10.8)
[2016-08-20 07:40] LABS: CONDITION 1
[2016-08-20 07:52] LABS: POTASSIUM 3.8 mmol/L (3.5-5.1)
[2016-08-20 07:54] LABS: CREATININE 0.88 mg/dl (0.61-1.24)
[2016-08-20 07:55] LABS: CALCIUM 8.4 mg/dl (8.4-10.2)
[2016-08-20] MEDS: ALBUTEROL HFA 8 GM INHALER INH SCH ×4 (10:06→21:10)
[2016-08-20] MEDS: IPRATROPIUM (HFA) 12.9 GM INHALER INH SCH ×4 (10:07→21:10)
--- NOTE | 2016-08-20 11:42 | PN ---
Date/Time of Note Date/Time of Note DATE: 08/20/16 TIME: 11:36 Assessment/Plan VTE Prophylaxis VTE Prophylaxis Intervention: SCD's Lines/Catheters IV Catheter Type (from Nrsg): Peripheral IV Urinary Cath still in place: Yes Reason Cath still needed: urinary retention Assessment/Plan Chief Complaint/Hosp Course Assessment/Plan: 76 yo male with past medical history of essential hypertension , type II DM, BPH, GERD, hyperlipidemia, depression, diverticulitis previously, who presents with abdominal pain with + SBO. 1. Abdominal pain - 2/2 to SBO vs ileus now s/p Laparoscopic lysis of adhesions and reduction of internal hernia POD # 2 - improving. - continue IVF, advance diet per surgery rec's, f/u surgery rec.s - pain medications, PT 2. Essential hypertension - stable - continue hydralazine prn for SBP > 160 3. Type II DM? hga1c = 5.4 - monitor for now 4. BPH - holding home medications 5. Dyslipidemia - f/u lipid panel, hold statin 6. Depression - holding SSRI 7. GERD - protonix IV 8. GI ppx - protonix 9. DVT ppx - scds Problems: Subjective 24 Hr Interval Summary Free Text/Dictation Pt has less abd pain now, passing gas. Exam/Review of Systems Vital Signs Vitals Vital Signs Date Time Temp Pulse Resp B/P Pulse Ox O2 Delivery O2 Flow Rate FiO2 08/20/16 09:49 69 08/20/16 08:02 98.5 17 127/79 95 08/18/16 20:04 Nasal Cannula Intake and Output 08/19/16 08/19/16 08/20/16 15:00 23:00 07:00 Intake Total 1000 ml 400 ml Output Total 700 ml 650 ml Balance 300 ml -250 ml Exam Gen Dalton: AAOx4, NAD presently HEENT: NC/AT, PERRLA, EOMI NECK: supple, no thyromegaly THORAX: symmetrical, no obvious deformities CV: S1S2, RRR, no M/G/R Lungs: CTAB no W/C/R/R Abd: less distension,less tenderness to palpation EXT: no edema, no ecchymosis, no clubbing, FROM Neuro: CN II-XII grossly intact, no focal deficits Psych: less anxious Skin: C/D/I Results Result Diagram: 08/20/16 0704 08/20/16 0704 Results 24 hrs Laboratory Tests Test 08/20/16 07:04 Anion Gap 15 Basophils # 0.0 Basophils % 0.5 Blood Morphology Comment Blood Urea Nitrogen 8 Calcium Level 8.4 Carbon Dioxide Level 26 Chloride Level 107 Creatinine 0.88 Eosinophils # 0.2 Eosinophils % 6.0 Glucose Level 86 Hematocrit 36.9 L Hemoglobin 12.9 L Lymphocytes # 1.5 Lymphocytes % 39.3 Mean Corpuscular Hemoglobin 32.3 Mean Corpuscular Hemoglobin Concent 35.0 Mean Corpuscular Volume 92.5 Mean Platelet Volume 7.3 L Monocytes # 0.5 Monocytes % 12.4 H Neutrophils # 1.6 Neutrophils % 41.8 Nucleated Red Blood Cells # 0.0 Nucleated Red Blood Cells % 0.0 Platelet Count 185 Potassium Level 3.8 Red Blood Count 3.99 L Red Cell Distribution Width 13.1 Sodium Level 144 White Blood Count 3.7 #L Medications Medications Current Medications Metoclopramide HCl (Reglan) 10 mg Q6H PRN IV NAUSEA AND/OR VOMITING; Start at 03:00 Acetaminophen (Tylenol Supp) 650 mg Q6H PRN [place] PAIN LEVEL 1-3 OR FEVER; Start 08/17/16 at 03:00 Morphine Sulfate (morphine) 2 mg Q4H PRN IV SEVERE PAIN LEVEL 7-10 Last administered on 08/19/16 08:07; Admin Dose 2 MG; Start 08/17/16 at 03:00 Pantoprazole (Protonix Iv) 40 mg DAILY@06 IV Last administered on 08/20/16 06: 14; Admin Dose 40 MG; Start 08/17/16 at 06:00 Hydralazine HCl (Apresoline) 10 mg Q6H PRN IV sbp > 160; Start 08/17/16 at 03: 00 Albuterol (Ventolin Hfa) 1 puff QID INH Last administered on 08/20/16 10:06; Admin Dose 1 PUFF; Start 08/17/16 at 09:00 Ipratropium [place] (Atrovent Hfa) 1 puff QID INH Last administered on 10:07; Admin Dose 1 PUFF; Start 08/17/16 at 09:00 Phenol (Chloraseptic Throat [place]) 2 spray PRN PRN [place] THROAT/EAR PAIN FROM NGT ; Start 08/17/16 at 16:30 Phenol (Chloraseptic Throat [place]) 2 spray Q2H PRN MT SORE THROAT; Start at 20:30 Morphine Sulfate (morphine) 2 mg Q2H PRN IV PAIN LEVEL 6-10 Last administered on 08/19/16 17:25; Admin Dose 2 MG; Start 08/18/16 at 18:00 Acetaminophen/ Hydrocodone Bitart ([place] (5/325)) 1 tab Q6H PRN PO PAIN LEVEL 6 -10 Last administered on 08/19/16 14:49; Admin Dose 1 TAB; Start 08/18/16 at 18: 00 Acetaminophen (Tylenol Tab) 650 mg Q6H PRN PO PAIN AND OR ELEVATED TEMP; Start 08/18/16 at 18:00 Ibuprofen (Motrin) 600 mg Q6H PRN PO PAIN LEVEL 1-5; Start 08/18/16 at 18:00 Ondansetron HCl 4 mg 4 mg Q6H PRN IV NAUSEA AND/OR VOMITING; Start 08/18/16 at 18:00 Potassium Chloride/Dextrose/ Sod Cl (D5-NS + KCl 20 Meq) 1,000 ml @ 50 mls/hr Q20H IV Last administered on 08/20/16 11:00; Admin Dose 50 MLS/HR; Start at 17:56 Enoxaparin Sodium (Lovenox) 40 mg DAILY@07 SC Last administered on 08/20/16 06: 24; Admin Dose 40 MG; Start 08/19/16 at 07:00 MARITA LOPEZ Aug 20, 2016 11:42
--- NOTE | 2016-08-20 20:04 | PN ---
DATE: 08/20/2016 SUBJECTIVE: Mr. Olivia is postop day 2 from a laparoscopic lysis of adhesions. The patient is fee ling better. He had a bowel movement, passing flatus, tolerating clears. PHYSICAL EXAMINATION: VITAL SIGNS: He is afebrile. Vital signs are stable. ABDOMEN: Soft. ASSESSMENT AND PLAN: Mr. Olivia is a 76-year-old male status post laparoscopic lysis of adhesions. 1. Ileus has resolved. 2. Soft diet. 3. Discharge in a.m. Dictated By: MARKY GONZALEZ/ABRIL Conf#: [id number] DID#: [id number]
[2016-08-21] VITALS: PULSE 69
[2016-08-21 00:23] VITALS: BP 133/78; RESP 22
[2016-08-21 04:04] VITALS: PULSE 66
[2016-08-21 04:51] VITALS: BP 127/75; RESP 22
[2016-08-21] MEDS: PANTOPRAZOLE 40 MG INJ IV SCH (06:00)
[2016-08-21 06:13] LABS: POTASSIUM 4.2 mmol/L (3.5-5.1)
[2016-08-21 06:15] LABS: CREATININE 0.91 mg/dl (0.61-1.24)
[2016-08-21] MEDS: ENOXAPARIN 40 MG/0.4 ML SYG SC SCH (06:21)
[2016-08-21 06:29] LABS: BASOPHILS % 0.4 % (0.0-2.0); EOSINOPHILS # 0.2 10^3/ul (0.0-0.5); EOSINOPHILS % 5.8 % (0.0-7.0); HEMATOCRIT 38.2 % (42.0-52.0); HEMOGLOBIN 13.2 g/dl (14.0-18.0); LYMPHOCYTES # 1.7 10^3/ul (0.8-2.9); LYMPHOCYTES % 39.1 % (15.0-51.0); MEAN CORPUSCULAR HEMOGLOBIN 32.1 pg (29.0-33.0); MEAN CORPUSCULAR HGB CONC 34.5 g/dl (32.0-37.0); MEAN CORPUSCULAR VOLUME 92.9 fl (82.0-101.0); MONOCYTE # 0.5 10^3/ul (0.3-0.9); MONOCYTES % 10.8 % (0.0-11.0); NEUTROPHIL # 1.9 10^3/ul (1.6-7.5); NEUTROPHILS % 43.9 % (39.0-77.0); PLATELET COUNT 205 10^3/UL (140-440); RED BLOOD COUNT 4.12 10^6/ul (4.70-6.10); RED CELL DISTRIBUTION WIDTH 12.9 % (11.5-14.5); UNCORRECTED WBC 4.3 10^3/ul (4.8-10.8); WHITE BLOOD COUNT 4.3 10^3/ul (4.8-10.8)
[2016-08-21 07:20] VITALS: BP 127/80; RESP 18
[2016-08-21 07:41] LABS: CONDITION 1
[2016-08-21 08:01] VITALS: PULSE 69
[2016-08-21] MEDS: ALBUTEROL HFA 8 GM INHALER INH SCH (08:37)
[2016-08-21] MEDS: IPRATROPIUM (HFA) 12.9 GM INHALER INH SCH (08:37)
--- NOTE | 2016-08-21 11:27 | PDOCDIS ---
Discharge Instructions CONDITION Patient Condition: Stable HOME CARE INSTRUCTIONS: Special Diet: Soft ACTIVITY: Activity Restrictions: Slowly Increase Activity FOLLOW UP/APPOINTMENTS Appointments Please take your medications as prescribed, and see your doc in clinic in1 week. MARITA LOPEZ Aug 21, 2016 11:27
--- NOTE | 2016-08-21 12:32 | DS ---
DATE OF ADMISSION: 08/17/2016 DATE OF DISCHARGE: 08/21/2016 A 76-year-old male originally admitted on 07/21/2016 being discharged home on 08/21/2016. HOSPITAL COURSE: Patient came in with abdominal pain. He was found with small-bowel obstruction an d he was treated for that. He was seen by general surgery team during this hospital stay and also w orked with physical therapy. The patient was treated conservatively with n.p.o. and NG tube, but th is did not help resolve the symptoms. He had no prior history of any surgeries in the past. So aft er being evaluated by the surgery team, he underwent an operation. Specifically, he underwent a lap aroscopic lysis of adhesions and reduction of an internal hernia. The patient tolerated the procedu re well. Afterwards he was able to ambulate with assistance from physical therapy, tolerate a p.o. diet. His vital signs were stable on day of discharge and patient will be discharged home today in improved condition. He will be sent with: 1. Combivent 200/100 inhaled q.i.d. 2. Norvasc 5 mg daily. 3. Aspirin 81 mg daily. 4. BuSpar 5 mg at bedtime. 5. Vitamin D3 1000 units daily. 6. Plavix 75 mg daily. 7. Nexium 40 mg daily. 8. Fenofibrate 134 mg daily. 9. Finasteride 5 mg daily. 10. Flonase daily. 11. Lactulose 20 grams at bedtime. 12. Meclizine 12.5 mg t.i.d. p.r.n. 13. Meloxicam 7.5 mg daily. 14. Metformin 500 mg daily. 15. Toprol-XL 50 mg daily. 16. Niacin 500 mg at bedtime. 17. Nitroglycerin 0.4 mg sublingual, 18. Paroxetine 20 mg daily. 19. Ranexa 500 mg q.12h. 20. Crestor 10 mg at bedtime. 21. Flomax 0.4 mg at bedtime. He will need to follow up with general surgery clinic in the next 1 to 2 weeks. FINAL DIAGNOSES: 1. Abdominal pain secondary to status post laparoscopic lysis of adhesions and internal hernia redu ction. 2. Essential hypertension. 3. Type 2 diabetes. Of note, hemoglobin A1c is 5.4. 4. Benign prostatic hypertrophy. 5. High cholesterol. 6. Depression. 7. History of gastroesophageal reflux disease. Time spent discharging patient 40 minutes. Dictated By: MARITA VERGARA Conf#: [id number] DID#: [id number]
== END 2016-08-21 11:55 | disposition home or self-care (01) | DRG 328 ==
LOC: E/R 21:29 → PP2 08-17 02:11 → MS4 08-17 17:53 → TEL 08-17 20:45
PROVIDERS: ADMIT Student in an Organized Health Care Education/Training Program; ATTEND Student in an Organized Health Care Education/Training Program
PROC: 0DS64ZZ Reposition Stomach, Percutaneous Endoscopic Approach (ICD-10-PCS; 2016-08-18)
PROC: 0DNG4ZZ Release Left Large Intestine, Percutaneous Endoscopic Approach (ICD-10-PCS; principal; 2016-08-18 16:00)
DX: K56.5 Intestinal adhesions [bands] with obstruction (postinfection) (principal); E11.9 Type 2 diabetes mellitus without complications; I10 Essential (primary) hypertension; N40.0 Benign prostatic hyperplasia without lower urinary tract symptoms; E78.5 Hyperlipidemia, unspecified; K21.9 Gastro-esophageal reflux disease without esophagitis; F32.9 Major depressive disorder, single episode, unspecified; I25.10 Atherosclerotic heart disease of native coronary artery without angina pectoris; K56.0 Paralytic ileus; Z79.02 Long term (current) use of antithrombotics/antiplatelets; Z79.4 Long term (current) use of insulin; Z79.82 Long term (current) use of aspirin; Z87.891 Personal history of nicotine dependence
CPT/HCPCS: 36415; 71010; 74010; 74176; 80048; 80053; 80061; 81001; 81003; 82962; 83036; 83690; 83735; 84100; 84443; 85025; 87081; 88307; 96374; 96375; 96376; 97162; C9113; J0690; J1170; J1650; J1815; J2250; J2270; J2405; J2710; J2765; J2795; J3480; J7030; J7120

== ENCOUNTER 2017-02-14 10:57 | Emergency (ER) | payer MEDICARE, OTHER ==
[~2017-02-14] VITALS: Ht 157.5 cm; Wt 68.0 kg
[~2017-02-14 10:57] MED LIST changes: -CIPR500T4 PO; -METR500T PO
[2017-02-14 10:59] VITALS: Ht 157.5 cm; Wt 68.0 kg
[2017-02-14] MEDS ORDERED: SOD CHLORIDE 0.9% 1,000 ML IV STA (11:19)
[2017-02-14] MEDS ORDERED: morphine 4 MG/ML VIAL IV STA ×2 (11:19→13:14)
[2017-02-14] MEDS ORDERED: ONDANSETRON 4 MG INJ IV STA ×2 (11:19→13:14)
[2017-02-14 11:53] LABS: BASOPHILS % 0.3 % (0.0-2.0); EOSINOPHILS # 0.1 10^3/ul (0.0-0.5); EOSINOPHILS % 1.9 % (0.0-7.0); HEMATOCRIT 41.2 % (42.0-52.0); HEMOGLOBIN 14.4 g/dl (14.0-18.0); LYMPHOCYTES # 2.2 10^3/ul (0.8-2.9); LYMPHOCYTES % 35.4 % (15.0-51.0); MEAN CORPUSCULAR HEMOGLOBIN 31.6 pg (29.0-33.0); MEAN CORPUSCULAR VOLUME 90.5 fl (82.0-101.0); MEAN PLATELET VOLUME 9.9 fl (7.4-10.4); MONOCYTE # 0.5 10^3/ul (0.3-0.9); MONOCYTES % 8.4 % (0.0-11.0); NEUTROPHIL # 3.4 10^3/ul (1.6-7.5); NEUTROPHILS % 53.7 % (39.0-77.0); PLATELET COUNT 226 10^3/UL (140-415); RED BLOOD COUNT 4.55 10^6/ul (4.70-6.10); RED CELL DISTRIBUTION WIDTH 13.2 % (11.5-14.5); WHITE BLOOD COUNT 6.3 10^3/ul (4.8-10.8)
[2017-02-14] MEDS ORDERED: NIT4 SL (12:03)
[2017-02-14] MEDS ORDERED: BUS5 PO (12:04)
[2017-02-14] MEDS ORDERED: CLON0.5T4 PO (12:05)
[2017-02-14] MEDS ORDERED: MECL-77 PO (12:06)
[2017-02-14] MEDS ORDERED: METF500T4 PO (12:07)
[2017-02-14] MEDS ORDERED: AMLO5TAB4 PO (12:07)
[2017-02-14] MEDS ORDERED: METO-429 PO (12:07)
[2017-02-14] MEDS ORDERED: TAMS0.4C2 PO (12:08)
[2017-02-14] MEDS ORDERED: ASPI-664 PO (12:08)
[2017-02-14] MEDS ORDERED: CHOL100062 PO (12:09)
[2017-02-14] MEDS ORDERED: LACT10SO53 PO (12:10)
[2017-02-14] MEDS ORDERED: MELO-109 PO (12:10)
[2017-02-14] MEDS ORDERED: QUET25TA33 PO (12:10)
[2017-02-14 12:11] LABS: ALANINE AMINOTRANSFERASE 29 IU/L (13-69); ALBUMIN 4.5 g/dl (3.3-4.9); ALBUMIN/GLOBULIN RATIO 1.45; ALKALINE PHOSPHATASE 45 IU/L (42-121); AMYLASE 134 U/L (11-123); ANION GAP 21 (8-16); ASPARTATE AMINO TRANSFERASE 27 IU/L (15-46); BILIRUBIN,INDIRECT 0.4 mg/dl (0-1.1); BILIRUBIN,TOTAL 0.4 mg/dl (0.2-1.3); BLOOD UREA NITROGEN 15 mg/dl (7-20); CALCIUM 9.7 mg/dl (8.4-10.2); CARBON DIOXIDE 25 mmol/L (21-31); CHLORIDE 101 mmol/L (97-110); CREATININE 1.13 mg/dl (0.61-1.24); GLUCOSE 107 mg/dl (70-220); POTASSIUM 3.8 mmol/L (3.5-5.1); SODIUM 143 mmol/L (135-144); TOTAL PROTEIN 7.6 g/dl (6.1-8.1)
[2017-02-14] MEDS ORDERED: FINA5TAB4 PO (12:11)
[2017-02-14] MEDS ORDERED: NIAC500T5 PO (12:11)
[2017-02-14] MEDS ORDERED: FENO160T10 PO (12:12)
[2017-02-14] MEDS ORDERED: PARO-37 PO (12:12)
[2017-02-14] MEDS ORDERED: ESOM40CA PO (12:13)
[2017-02-14] MEDS ORDERED: CRES10 PO (12:13)
[2017-02-14] MEDS ORDERED: RANO500T2 PO (12:14)
[2017-02-14] MEDS ORDERED: LINA145C PO (12:14)
[2017-02-14] MEDS ORDERED: IPRA4AER INHALATION (12:14)
[2017-02-14] MEDS ORDERED: METR250T19 PO (12:15)
[2017-02-14 12:17] LABS: INR 1.03; PROTIME 13.5 Sec (12.2-14.2); PT RATIO 1.1
[2017-02-14 12:18] LABS: PARTIAL THROMBOPLASTIN TIME 34.6 Sec (25.0-35.0)
[2017-02-14 12:23] LABS: TROPONIN-I < 0.012 ng/ml (0.00-0.12)
[2017-02-14] MEDS ORDERED: IODIXANOL LOCM 100 ML BTL ONE (12:27)
[2017-02-14] MEDS ORDERED: SOD CHLORIDE 0.9% 100 ML ONE (12:27)
[2017-02-14 12:43] LABS: ADD UMIC YES; UR ASCORBIC ACID NEGATIVE (NEGATIVE); UR BILIRUBIN (Dip) NEGATIVE (NEGATIVE); UR BLOOD (Dip) NEGATIVE (NEGATIVE); UR CLARITY CLEAR (CLEAR); UR COLOR YELLOW (YELLOW); UR GLUCOSE (Dip) NEGATIVE (NEGATIVE); UR KETONES (Dip) NEGATIVE (NEGATIVE); UR LEUKOCYTE ESTERASE (Dip) TRACE Leu/ul (NEGATIVE); UR NITRITE (Dip) NEGATIVE (NEGATIVE); UR RBC 0 /HPF (0-5); UR SPECIFIC GRAVITY (Dip) 1.006 (1.003-1.030); UR TOTAL PROTEIN (Dip) NEGATIVE (NEGATIVE); UR UROBILINOGEN (Dip) NEGATIVE (NEGATIVE)
--- NOTE | 2017-02-14 12:48 | RADRPT ---
PROCEDURE: CT of the abdomen and pelvis CLINICAL INDICATION: Abdominal pain TECHNIQUE: The study was performed utilizing a [employer] 64-slice multidetector CT scanner. Dir ect spiral axial sections were obtained through the abdomen and pelvis with intravenous contrast. Af ter administration of 90 cc of Visipaque 320, postcontrast images were obtained. Coronal and sagitt al reformatted images were performed. The CTDI vol is 12.01 mGy and the DLP is 716 mGy-cm. The imag es were reviewed on a PACS workstation. COMPARISON: 08/17/2016 FINDINGS: CT abdomen: 3 mm nodule in the left lower lobe is seen and has not changed significantly. The melissa ining lung bases are clear. The heart is not enlarged. No pericardial effusion is seen. The liver is normal in size and contour. Calcifications in the right hepatic lobe are once again see n. No focal liver lesions or intrahepatic biliary dilatation is seen. The gallbladder is normal. No common bile duct dilatation is seen. The spleen, pancreas, and adrenal glands are unremarkable in a ppearance. The kidneys are normal in size and contour enhance normally. No evidence of hydronephros is or nephrolithiasis is seen. The left renal cyst is essentially unchanged. The stomach is unremarkable. The large bowel is stool-filled. Sigmoid diverticulosis is seen withou t evidence of diverticulitis. The small and remainder of the large bowel are otherwise unremarkable in course and caliber. No inflammatory changes in the periappendiceal region is seen. No enlarged l ymph nodes or fluid collections are seen. The aorta is normal in caliber. Aortic calcifications are seen. CT pelvis: No pelvic mass, adenopathy, or focal fluid collection is seen. There is no free fluid. The urinary bladder is normal. The pelvic organs are unremarkable. No osseous lesions are seen. De generative spondylosis of the lumbar spine is seen. IMPRESSION: 1. No acute pathology in the abdomen and pelvis. 2. Stool filled large bowel with sigmoid diverticulosis. 3. 3 mm nodule left lower lobe is stable. Recommendations Solid nodules Nodule size: = 4 mm - low risk patients: no follow-up needed - high risk patients: follow-up at 12 months and if no change, no further imaging needed Nodule size: 4-6 mm - low risk patients: follow-up at 12 months and if no change, no further imaging needed - high risk patients: initial follow-up CT at 6-12 months and then at 18-24 months if no change Nodule size: >6-8 mm - low risk patients: initial follow-up CT at 6-12 months and then at 18-24 months if no change - high risk patients: initial follow-up CT at 3-6 months and then at 9-12 and 24 months if no change Nodule size: >8 mm - either low or high risk patients - follow-up CTs at around 3, 9, and 24 months - dynamic contrast enhanced CT, PET, and/or biopsy Note: newly detected indeterminate nodule in persons 35 years of age or older. - low risk patients: minimal or absent history of smoking and or other known risk factors - high risk patients: history of smoking or of other known risk factors (e.g. first degree relative with lung cancer, or exposure to asbestos, radon, uranium) if a nodule up to 8 mm is partly solid or is ground glass further follow up is required after 24 mon ths to exclude possible slow growing adenocarcinoma (WALT) RPTAT: HPNM Physician Kurtis Date Time Electronically viewed and signed by Physician Kurtis on 02/14/2017 12:47 /
[2017-02-14] MEDS ORDERED: CIPR500T4 PO (14:24)
[2017-02-14 14:35] VITALS: BP 126/85; PULSE 57; RESP 16; TEMP 98.5
--- NOTE | 2017-02-14 14:36 | ERD ---
ER Documentation Chief Complaint Date/Time DATE: 02/14/17 TIME: 14:31 Chief Complaint AP HPI This is a 76-year-old Dive[place] speaking male that presents to the emergency department complaining of left-sided lower abdominal pain for the past 3 days. The patient has had a history of a small bowel obstruction due to surgical adhesions and diverticulitis. He indicates that over the past 3 days the pain is a dull achy sensation exacerbated with touch and relieved when lying supine. He has had no fevers or shaking or chills. He denies any hemoptysis hematemesis or melanotic stools. The patient saw his primary care physician yesterday and was prescribed Flagyl. He denies any chest pain or pressure that radiates to the neck arm back or jaw and he has no shortness of breath at rest or exertion. He does suffer from constipation and takes laxatives at home and indicates his last bowel movement was roughly 24 hours ago ROS All systems reviewed and are negative except as per history of present illness. Medications Home Meds Active Scripts Ciprofloxacin Hcl* (Ciprofloxacin Hcl*) 500 Mg Tablet, 500 MG PO BID for 7 Days , TAB Prov:CHERRY SCHULER 02/14/17 Reported Medications Metronidazole* (Metronidazole*) 250 Mg Tablet, 250 MG PO TID, TAB 02/14/17 Linaclotide (LINZESS) 145 Mcg Capsule, 145 MCG PO DAILY, #30 CAP 02/14/17 Albuterol/Ipratropium* (Combivent Respimat*) 20-100 Mcg/Inh - 4 Gm Aer.w.adap, 1 PUFF INHALATION QID, #1 INHALER 02/14/17 Ranolazine* (Ranexa*) 500 Mg Tab.sr.12h, 500 MG PO Q12, TAB 02/14/17 Rosuvastatin Calcium* (Crestor*) 10 Mg Tablet, 10 MG PO DAILY, #30 TAB 02/14/17 Esomeprazole Mag Trihydrate (Nexium) 40 Mg Capsule.dr, 40 MG PO DAILY, #30 CAP 02/14/17 Paroxetine Hcl* (Paroxetine*) 20 Mg Tablet, 20 MG PO HS, TAB 02/14/17 Fenofibrate (Triglide) 160 Mg Tablet, 160 MG PO DAILY, TAB 02/14/17 Niacin (Niacor) 500 Mg Tablet, 500 MG PO BID, TAB 02/14/17 Finasteride* (Finasteride*) 5 Mg Tablet, 5 MG PO DAILY, TAB 02/14/17 Quetiapine Fumarate* (Quetiapine Fumarate*) 25 Mg Tablet, 25 MG PO HS, TAB 02/14/17 Meloxicam* (Meloxicam*) 7.5 Mg Tablet, 7.5 MG PO DAILY, #30 TAB 02/14/17 Lactulose (Constulose) 10 Gm/15 Ml Solution, 30 ML PO QHS 02/14/17 Cholecalciferol* (Vitamin D3*) 1,000 Unit Tablet, 1000 UNIT PO DAILY, TAB 02/14/17 Tamsulosin Hcl* (Tamsulosin Hcl*) 0.4 Mg Cap.er.24h, 0.4 MG PO DAILY, CAP 02/14/17 Aspirin* (Aspirin* EC) 81 Mg Tablet.dr, 81 MG PO DAILY, TAB 02/14/17 Amlodipine Besylate* (Norvasc*) 5 Mg Tablet, 5 MG PO DAILY, TAB 02/14/17 Metformin Hcl* (Metformin Hcl*) 500 Mg Tablet, 500 MG PO WITH BREAKFAST, #30 TAB 02/14/17 Metoprolol Tartrate* (Lopressor*) 50 Mg Tab, 50 MG PO DAILY, #60 TAB 02/14/17 Meclizine Hcl* (Meclizine Hcl*) 25 Mg Tablet, 37.5 MG PO DAILY Y for DIZZINESS, TAB 02/14/17 Clonazepam* (Clonazepam*) 0.5 Mg Tablet, 0.5 MG PO QHS Y for ANXIETY, TAB 02/14/17 Buspirone Hcl* (Buspar*) 5 Mg Tab, 5 MG PO QHS, TAB 02/14/17 Nitroglycerin* (Nitrostat*) 0.4 Mg Tab.subl, 0.4 MG SL Q5MIN Y for CHEST PAIN, BOTTLE 02/14/17 Discontinued Reported Medications Cholecalciferol* (Vitamin D3*) 1,000 Unit Tablet, 1000 UNIT PO DAILY, TAB 04/09/15 Rosuvastatin Calcium* (Crestor*) 10 Mg Tablet, 10 MG PO HS, TAB 04/09/15 Fenofibrate, Micronized (Fenofibrate) 134 Mg Capsule, 134 MG PO DAILY, CAP 04/09/15 Ranolazine* (Ranexa*) 500 Mg Tab.sr.12h, 500 MG PO Q12, TAB 04/09/15 Albuterol/Ipratropium* (Combivent Respimat*) 20-100 Mcg/Inh - 4 Gm Aer.w.adap, 1 PUFF IH QID, INH 04/09/15 Esomeprazole Mag Trihydrate (Nexium) 40 Mg Capsule.dr, 40 MG PO DAILY, CAP 04/09/15 Aspirin* (Aspirin* EC) 81 Mg Tablet.dr, 81 MG PO DAILY, TAB 04/09/15 Fluticasone Propionate* (Fluticasone Propionate* Nasal) 50 Mcg/Pollock - 16 Gm Pollock.susp, 2 SPRAYS NASAL DAILY, EA TO EACH NOSTRIL 04/09/15 Buspirone Hcl* (Buspar*) 5 Mg Tab, 5 MG PO QHS, TAB 04/09/15 Niacin (Niacin* ER) 500 Mg Tab.er.24h, 500 MG PO QHS, TAB.SA 04/09/15 Clopidogrel Bisulfate (Clopidogrel) 75 Mg Tablet, 75 MG PO DAILY, TAB 04/09/15 Meloxicam* (Meloxicam*) 7.5 Mg Tablet, 7.5 MG PO DAILY, TAB 04/09/15 Lactulose* (Lactulose*) 10 Gm/15 Ml Solution, 20 GM PO QHS, ML 04/09/15 Tamsulosin Hcl* (Tamsulosin Hcl*) 0.4 Mg Cap.er.24h, 0.4 MG PO HS, CAP 04/09/15 Metformin* (Glucophage*) 500 Mg Tab, 500 MG PO DAILY, TAB 04/09/15 Meclizine Hcl* (Meclizine Hcl*) 12.5 Mg Tablet, 12.5 MG PO TID Y for PAIN, TAB 04/09/15 Metoprolol Succinate* (Toprol XL*) 50 Mg Tab.er.24h, 50 MG PO DAILY, TAB 04/09/15 Finasteride* (Finasteride*) 5 Mg Tablet, 5 MG PO DAILY, TAB 04/09/15 Nitroglycerin* (Nitrostat*) 0.4 Mg Tab.subl, 0.4 MG SL Q5MIN Y for CHEST PAIN, BOTTLE 04/09/15 Paroxetine Hcl* (Paroxetine*) 20 Mg Tablet, 20 MG PO DAILY, TAB 04/09/15 Amlodipine Besylate* (Norvasc*) 5 Mg Tablet, 5 MG PO DAILY, TAB 04/09/15 Allergies Allergies: Coded Allergies: No Known Allergy (Verified , 02/14/17) PMhx/Soc History of Surgery: Yes (angiogram with angioplasty) Anesthesia Reaction: No Hx Neurological Disorder: No Hx Respiratory Disorders: No Hx Cardiac Disorders: Yes (CAD) Hx Psychiatric Problems: No Hx Miscellaneous Medical Probl: Yes (HTN, CAD, stents, DM, BPH, GERD, depression, diverticulitis) Hx Alcohol Use: No Hx Substance Use: No Hx Tobacco Use: No Smoking Status: Never smoker Physical Exam Vitals Vital Signs Date Time Temp Pulse Resp B/P Pulse Ox O2 Delivery O2 Flow Rate FiO2 02/14/17 13:05 57 16 132/99 100 Room Air 02/14/17 10:59 98.1 65 18 141/69 99 Physical Exam Constitutional:Well-developed. Well-nourished. HEENT:Normocephalic. Atraumatic.Pupils were equal round reactive to light. Moist mucous membranes.No tonsillar exudates. Neck: No nuchal rigidity. No lymphadenopathy. No posterior cervical spine tenderness or step-offs. Respiratory: Not using accessory muscles of respiration.Lungs were clear to auscultation bilaterally. No rhonchi. No rales. No wheezing. Cardiovascular: Regular rate regular rhythm.No murmurs. No rubs were appreciated.S1, S2 normal. Distal pulses are palpable 2+ bilaterally. GI: Abdomen was soft. Tenderness in the left lower quadrant. Non Distended. No pulsatile abdominal masses or bruits. No rebound. No guarding. Bowel sounds were present and normal. Muscle skeletal: Full range of motion of both the upper and lower extremities bilaterally.Normal muscle tone.No assymetrical calf tenderness or swelling. Skin: No petechia, no purpura. No lesions on the palms or the soles of the feet. No maculopapular rash. NEURO: Patient was alert, awake, orientated x3.No facial droop. Gait observed and normal with no ataxia.Speech had regular rate and rhythm. No focal neurological deficits. Result Diagram: 02/14/17 1120 02/14/17 1120 Results 24 hrs Laboratory Tests Test 02/14/17 11:20 02/14/17 12:15 White Blood Count 6.310^3/ul Red Blood Count 4.5510^6/ul Hemoglobin 14.4g/dl Hematocrit 41.2% Mean Corpuscular Volume 90.5fl Mean Corpuscular Hemoglobin 31.6pg Mean Corpuscular Hemoglobin Concent 35.0g/dl Red Cell Distribution Width 13.2% Platelet Count 15078^3/UL Mean Platelet Volume 9.9fl Neutrophils % 53.7% Lymphocytes % 35.4% Monocytes % 8.4% Eosinophils % 1.9% Basophils % 0.3% Nucleated Red Blood Cells % 0.0/100WBC Neutrophils # 3.410^3/ul Lymphocytes # 2.210^3/ul Monocytes # 0.510^3/ul Eosinophils # 0.110^3/ul Basophils # 0.010^3/ul Nucleated Red Blood Cells # 0.010^3/ul Prothrombin Time 13.5Sec Prothrombin Time Ratio 1.1 INR International Normalized Ratio 1.03 Activated Partial Thromboplast Time 34.6Sec Sodium Level 143mmol/L Potassium Level 3.8mmol/L Chloride Level 101mmol/L Carbon Dioxide Level 25mmol/L Anion Gap 21 Blood Urea Nitrogen 15mg/dl Creatinine 1.13mg/dl Glucose Level 107mg/dl Calcium Level 9.7mg/dl Total Bilirubin 0.4mg/dl Direct Bilirubin 0.00mg/dl Indirect Bilirubin 0.4mg/dl Aspartate Amino Transf (AST/SGOT) 27IU/L Alanine Aminotransferase (ALT/SGPT) 29IU/L Alkaline Phosphatase 45IU/L Troponin I < 0.012ng/ml Total Protein 7.6g/dl Albumin 4.5g/dl Globulin 3.10g/dl Albumin/Globulin Ratio 1.45 Amylase Level 134U/L Lipase 155U/L Urine Color YELLOW Urine Clarity CLEAR Urine pH 7.0 Urine Specific [place] 1.006 Urine Ketones NEGATIVEmg/dL Urine Nitrite NEGATIVEmg/dL Urine Bilirubin NEGATIVEmg/dL Urine Urobilinogen NEGATIVEmg/dL Urine Leukocyte Esterase TRACELeu/ul Urine Microscopic RBC 0/HPF Urine Microscopic WBC 0/HPF Urine Hemoglobin NEGATIVEmg/dL Urine Glucose NEGATIVEmg/dL Urine Total Protein NEGATIVEmg/dl Current Medications Medications (Trade) Dose Ordered Sig/Bonnie Route PRN Reason Start Time Stop Time Status Last Admin Dose Admin Sodium Chloride (NS) 1,000 ml @ 1,000 mls/hr Q1H STAT IV 02/14/17 11:19 02/14/17 12:18 DC 02/14/17 11:35 Morphine Sulfate (morphine) 4 mg ONCE STAT IV 02/14/17 11:19 02/14/17 11:24 DC 02/14/17 11:35 Ondansetron HCl (Zofran Inj) 4 mg ONCE STAT IV 02/14/17 11:19 02/14/17 11:24 DC 02/14/17 11:35 IV Flush 10 ml 10 ml STK-MED ONCE .ROUTE 02/14/17 12:27 02/14/17 12:28 DC Sodium Chloride (NS) 100 ml @ ud STK-MED ONCE .ROUTE 02/14/17 12:27 02/14/17 12:28 DC Iodixanol (Visipaque Locm) 100 ml STK-MED ONCE .ROUTE 02/14/17 12:27 02/14/17 12:28 DC Morphine Sulfate (morphine) 4 mg ONCE STAT IV 02/14/17 13:14 02/14/17 13:16 DC 02/14/17 13:18 Ondansetron HCl (Zofran Inj) 4 mg ONCE STAT IV 02/14/17 13:14 02/14/17 13:16 DC 02/14/17 13:18 Procedures/MDM This patient presented to the emergency department with abdominal pain and was seen and evaluated by myself. My differential diagnosis included but was not limited to abdominal aortic aneurysm, appendicitis, pancreatitis, perforated peptic ulcer, perforated viscus, Boerhaaves syndrome or visceral pain such as diverticulitis, DKA, esophagitis, hepatitis or bowel obstruction. The patient was placed on a monitoring specialist, continuous pulse oximetry, and IV access was established by nursing staff. Patient received intravenous morphine and Zofran for analgesic control I obtained a 12-lead EKG tracing to rule out atypical myocardial infarction. 12 Lead EKG tracing ordered and reviewed by myself showed: Sinus bradycardia 57 bpm and no arrhythmia. GA interval normal. QRS duration normal. No ST segment elevation No ST segment depression. No changes consistent with acute ischemia. As obtained a CT scan of the abdomen which indicated the patient had diverticulosis without diverticulitis and no evidence of perforation. The patient did have constipation. There is no signs of a small bowel obstruction. I did speak at length with the patient's son who is a art tracer in [place]. I will provide a prescription of ciprofloxacin to broaden the patient's antibiotic coverage as he is currently on Flagyl. I informed the son and the patient of the nodule that was seen on the left lower lobe however there is been no changes from a previous CT scan. They will follow-up on an outpatient basis. The patient was pain-free at the time of discharge and able to tolerate oral intake. The patient was discharged home in fair condition. They were instructed to return to the emergency department at any time if there was any worsening of their condition. The patient stated they would follow up with their PCP in the next 24-48 hours to initiate a suitable medication regimen under the care of their PCP as well as to allow their PCP to monitor any drug reactions. The patient was discharged home with prescriptions after they gave informed consent to the new medication. They were also fully informed by myself on the adverse effects and adverse drug interactions in order to provide adequate safeguards to prevent possible adverse reactions to medications. Departure Diagnosis: Primary Impression: Diverticulosis of colon without diverticulitis Condition: Fair Patient Instructions: Diverticulosis CHERRY SCHULER Feb 14, 2017 14:36
== END 2017-02-14 14:39 | disposition home or self-care (01) ==
LOC: E/R 10:57
DX: K57.30 Diverticulosis of large intestine without perforation or abscess without bleeding (principal); I10 Essential (primary) hypertension; I25.10 Atherosclerotic heart disease of native coronary artery without angina pectoris; E11.9 Type 2 diabetes mellitus without complications; Z79.01 Long term (current) use of anticoagulants; Z79.84 Long term (current) use of oral hypoglycemic drugs; Z79.82 Long term (current) use of aspirin; Z98.61 Coronary angioplasty status
CPT/HCPCS: 36415; 74177; 80053; 81001; 82150; 83690; 84484; 85025; 85610; 85730; 93005; 96374; 96375; 96376; 99285; J2270; J2405; J7030; Q9967